=== PATIENT | male | born 1995 | race Caucasian/White ===

== ENCOUNTER 2017-02-20 02:56 | Emergency (ER) | payer OTHER ==
[~2017-02-20] VITALS: Ht 177.8 cm; Wt 95.5 kg
[2017-02-20 03:48] VITALS: BP 135/82
== END 2017-02-20 03:49 | disposition home or self-care (01) ==
LOC: ED 03:12
DX: S09.90XA Unspecified injury of head, initial encounter (principal); S80.211A Abrasion, right knee, initial encounter; Y04.8XXA Assault by other bodily force, initial encounter; Y93.89 Activity, other specified; Y92.89 Other specified places as the place of occurrence of the external cause; Y99.8 Other external cause status
CPT/HCPCS: 99281

== ENCOUNTER 2018-07-12 02:34 | Emergency (ER) | payer OTHER ==
[~2018-07-12] VITALS: Ht 177.8 cm; Wt 107.5 kg
[2018-07-12 02:37] VITALS: BP 124/64
[2018-07-12] MEDS ORDERED: LIDOCAINE-MPF 1%, 5ML ONE (02:54)
[2018-07-12] MEDS ORDERED: BACITRACIN ZINC OINT 500U/GM, 0.9 GM ONE (02:55)
[2018-07-12] MEDS ORDERED: LIDOCAINE-MPF 1%, 5ML INFIL ONE (03:00)
== END 2018-07-12 03:38 | disposition home or self-care (01) ==
LOC: ED 03:20
DX: S61.411A Laceration without foreign body of right hand, initial encounter (principal); X58.XXXA Exposure to other specified factors, initial encounter; Y93.89 Activity, other specified; Y92.009 Unspecified place in unspecified non-institutional (private) residence as the place of occurrence of the external cause; Y99.8 Other external cause status
CPT/HCPCS: 12001; 99283